=== PATIENT | female | born 1995 ===

== ENCOUNTER 2019-04-26 13:04 | Inpatient (IN) | payer OTHER ==
[~2019-04-26] VITALS: Ht 149.9 cm; Wt 60.3 kg
[2019-04-27] MEDS ORDERED: LEVO-T88 MCG PO (08:18)
[2019-04-27] MEDS ORDERED: FERRLECIT62.5 MG/2 (08:19)
[2019-04-29] MEDS ORDERED: PREPLUS CA-FE1 EACH PO (08:01)
[2019-04-29] MEDS ORDERED: IBUPROFEN800 MG PO (08:01)
[2019-04-29] MEDS ORDERED: SIMETHICONE125 M1 PO (08:01)
[2019-04-29] MEDS ORDERED: DOCUSATE SODIU100 MG PO (08:01)
== END 2019-04-29 13:29 | disposition home or self-care (01) | DRG 785 ==
LOC: LDR 13:04 → OB/GYN 13:04
PROVIDERS: ADMIT Obstetrics & Gynecology
PROC: 0UB70ZZ Excision of Bilateral Fallopian Tubes, Open Approach (ICD-10-PCS; 2019-04-26)
PROC: 4A033R1 Measurement of Arterial Saturation, Peripheral, Percutaneous Approach (ICD-10-PCS; 2019-04-26)
PROC: 4A1HXCZ Monitoring of Products of Conception, Cardiac Rate, External Approach (ICD-10-PCS; 2019-04-26)
PROC: 10D00Z1 Extraction of Products of Conception, Low, Open Approach (ICD-10-PCS; principal; 2019-04-26 15:15)
DX: O82 Encounter for cesarean delivery without indication (principal); O34.211 Maternal care for low transverse scar from previous cesarean delivery; Z3A.39 39 weeks gestation of pregnancy; Z37.0 Single live birth; Z30.2 Encounter for sterilization